=== PATIENT | female | born 1995 | race Caucasian/White ===

== ENCOUNTER 2016-11-19 05:58 | Emergency (ER) | payer BC, OTHER ==
[2016-11-19 08:56] LABS: AMORPHOUS SEDIMENT,URINE 1+ /HPF
[2016-11-19 08:57] LABS: APPEARANCE,URINE TURBID; GLUCOSE, URINE NEGATIVE (NEGATIVE)
[2016-11-19 08:58] LABS: BILIRUBIN,URINE NEGATIVE (NEGATIVE); KETONES,URINE NEGATIVE (NEGATIVE); LEUKOCYTE ESTERASE,URINE TRACE (NEGATIVE); NITRITE,URINE NEGATIVE (NEGATIVE); PROTEIN,URINE 30 mg/dL (NEGATIVE); URINE SPECIFIC GRAVITY 1.028; UROBILINOGEN,URINE NEGATIVE mg/dL (<2.0)
[2016-11-19] MEDS ORDERED: CYCLOBENZAPRINE HCL 10 MG TABLET PO ONE (09:36)
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
[2016-11-19 09:47] VITALS: BP 122/72
[2016-11-19 10:20] LABS: CHLAM PCR NOT DETECTED (NOT DETECT)
== END 2016-11-19 09:51 | disposition home or self-care (01) ==
LOC: ER 05:58
DX: S00.93XA Contusion of unspecified part of head, initial encounter (principal); S16.1XXA Strain of muscle, fascia and tendon at neck level, initial encounter; V49.40XA Driver injured in collision with unspecified motor vehicles in traffic accident, initial encounter; Y92.410 Unspecified street and highway as the place of occurrence of the external cause; E78.00 Pure hypercholesterolemia, unspecified
CPT/HCPCS: 81001; 81025; 87086; 87491; 87591; 99283

== ENCOUNTER 2017-09-18 19:58 | Emergency (ER) | payer BC, OTHER ==
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
[2017-09-18] MEDS ORDERED: ONDANSETRON 4 MG TAB.RAPDIS PO ONE (21:44)
[2017-09-18] MEDS ORDERED: OXYCODONE-ACETAMINOPHEN 5-325 MG TABLET PO ONE (21:44)
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
[2017-09-18] MEDS ORDERED: HYDROCODONE/ACETAMINOPHEN 5-325 MG (6 TAB/ER DISP) PO PRN (23:23)
[2017-09-19 00:16] VITALS: BP 130/73
== END 2017-09-19 00:17 | disposition home or self-care (01) ==
LOC: ER 19:58
DX: S92.345A Nondisplaced fracture of fourth metatarsal bone, left foot, initial encounter for closed fracture (principal); S63.502A Unspecified sprain of left wrist, initial encounter; S50.02XA Contusion of left elbow, initial encounter; S60.415A Abrasion of left ring finger, initial encounter; V28.4XXA Motorcycle driver injured in noncollision transport accident in traffic accident, initial encounter; R55 Syncope and collapse
CPT/HCPCS: 99284; 73080; 73552; 73630; 73120; 70450; 72125; L3908; S0119